=== PATIENT | female | born 1965 | race Caucasian/White ===

== ENCOUNTER 2020-06-25 08:57 | Outpatient (REF) | payer OTHER, SELFPAY ==
[2020-06-25 11:25] LABS: Hematocrit 41.6 % (37-47); Hemoglobin 13.2 g/dl (12.0-16.0); Mean Corpuscular HGB Conc 31.7 g/dl (31.0-35.0); Mean Corpuscular Hemoglobin 31.9 pg (27.0-33.0); Mean Corpuscular Volume 100.5 fL (80-98); Mean Platelet Volume 10.7 fL (9.4-12.3); Platelet Count 280 X10*3/uL (160-400); Red Blood Count 4.14 X10*6/uL (4.20-5.50); Red Cell Distribution Width 13.6 % (11.0-16.0); White Blood Count 5.6 X10*3/uL (4.8-10.8)
[2020-06-25 11:46] LABS: Alanine Aminotransferase 19 U/L (0-31); Albumin Level 4.6 g/dL (3.5-5.0); Alkaline Phosphatase 116 U/L (39-117); Anion Gap 16 (12-20); Aspartate Amino Transferase 19 U/L (5-31); Bilirubin Total 0.5 mg/dL (0.0-1.0); Blood Urea Nitrogen 18 mg/dL (9-16); Calcium 9.4 mg/dL (8.4-10.2); Carbon Dioxide 21 mmol/L (22-29); Chloride 107 mmol/L (96-108); Cholesterol 258 mg/dL; Estimated Glomerular Filt Rate > 60; Glucose Fasting 86 mg/dL (60-99); HDL Cholesterol 78 mg/dL; LDL Cholesterol Calculated 166 mg/dl; Potassium 4.4 mmol/l (3.3-5.1); Sodium 140 mmol/L (135-145); Total Protein 7.6 g/dL (6.5-8.0); Triglycerides 74 mg/dL
[2020-06-25 12:11] LABS: Thyroid Stimulating Hormone 1.32 mIU/mL (0.32-4.0); Vitamin D 25-OH Total 42.3 ng/mL (>30)
[2020-06-25 12:24] LABS: Glucose Urine UA NEG (NEG); Leukocyte Esterase Urine 1+ (NEG); Nitrite Urine NEG (NEG); Specific Gravity - Urine 1.025 (1.005-1.025); Urine Blood 1+ (NEG); Urine Ketones NEG (NEG); Urine Protein NEG (NEG-TRACE)
[2020-06-25 12:42] LABS: Appearance Urine CLEAR; Color Urine YELLOW
[2020-06-25 13:37] LABS: Bacteria Urine TRACE /LPF; RBC Urine 0 /HPF (0); Squamous Epithelial Cell Urine TRACE /LPF; WBC Urine 0-2 /HPF (0-4)
== END 2020-06-25 08:58 | disposition home or self-care (01) ==
LOC: HO.HMGCLDS 08:57
PROVIDERS: PCP Internal Medicine; Visit Provider Internal Medicine
DX: E78.2 Mixed hyperlipidemia (principal)
CPT/HCPCS: 36415; 80053; 80061; 81001; 81003; 82306; 84443; 85027

== ENCOUNTER 2020-12-29 09:53 | Outpatient (REF) | payer OTHER, SELFPAY ==
[2020-12-29 12:08] LABS: Cholesterol 251 mg/dL; HDL Cholesterol 80 mg/dL; LDL Cholesterol Calculated 159 mg/dl; Triglycerides 60 mg/dL
[2020-12-29 12:14] LABS: Vitamin D 25-OH Total 40.9 ng/mL (>30)
== END 2020-12-29 09:54 | disposition home or self-care (01) ==
LOC: HO.HMGCLDS 09:53
PROVIDERS: PCP Internal Medicine; Visit Provider Internal Medicine
DX: Z00.00 Encounter for general adult medical examination without abnormal findings (principal); E55.9 Vitamin D deficiency, unspecified; E78.00 Pure hypercholesterolemia, unspecified
CPT/HCPCS: 36415; 80061; 82306

== ENCOUNTER 2022-04-20 11:25 | Outpatient (REF) | payer OTHER, SELFPAY ==
[2022-04-20 12:36] LABS: Influenza A PCR NEGATIVE (Negative); Influenza B PCR NEGATIVE (Negative); Resp Syncy Virus RNA Qual PCR NEGATIVE (Negative); SARS COV2 PCR INHOUSE NEGATIVE (Negative)
== END 2022-04-20 11:26 | disposition home or self-care (01) ==
LOC: HO.LNP 11:25
PROVIDERS: Visit Provider Family Medicine
DX: Z20.822 Contact with and (suspected) exposure to COVID-19 (principal)
CPT/HCPCS: 0241U

== ENCOUNTER 2022-05-30 10:29 | Outpatient (REF) | payer OTHER, SELFPAY ==
[2022-05-30 11:40] LABS: Hematocrit 43.3 % (37.0-47.0); Hemoglobin 14.2 g/dl (12.0-16.0); Mean Corpuscular HGB Conc 32.8 g/dl (31.0-35.0); Mean Corpuscular Hemoglobin 31.9 pg (27.0-33.0); Mean Corpuscular Volume 97.3 fL (80.0-98.0); Mean Platelet Volume 10.6 fL (9.4-12.3); Platelet Count 249 X10*3/uL (160-400); Red Blood Count 4.45 X10*6/uL (4.20-5.50); White Blood Count 6.5 X10*3/uL (4.8-10.8)
[2022-05-30 11:46] LABS: Alanine Aminotransferase 29 U/L (0-31); Albumin Level 4.7 g/dL (3.5-5.0); Alkaline Phosphatase 103 U/L (39-117); Anion Gap 15 (12-20); Aspartate Amino Transferase 24 U/L (5-31); Bilirubin Total 0.5 mg/dL (0.0-1.0); Blood Urea Nitrogen 20 mg/dL (9-16); Calcium 9.8 mg/dL (8.4-10.2); Carbon Dioxide 25 mmol/L (22-29); Chloride 105 mmol/L (96-108); Cholesterol 260 mg/dL; Estimated Glomerular Filt Rate 51; Glucose Fasting 96 mg/dL (60-99); HDL Cholesterol 80 mg/dL; LDL Cholesterol Calculated 166 mg/dl; Potassium 4.3 mmol/L (3.3-5.1); Sodium 141 mmol/L (135-145); Total Protein 7.5 g/dL (6.5-8.0); Triglycerides 73 mg/dL
[2022-05-30 12:09] LABS: TSH reflex Free T4 1.08 uIU/mL (0.32-4.0); Vitamin D 25-OH Total 45.3 ng/mL (>30)
== END 2022-05-30 10:30 | disposition home or self-care (01) ==
LOC: HO.HMGCLDS 10:29
PROVIDERS: PCP Internal Medicine; Visit Provider Internal Medicine
DX: Z00.00 Encounter for general adult medical examination without abnormal findings (principal); E78.00 Pure hypercholesterolemia, unspecified
CPT/HCPCS: 36415; 80053; 80061; 82306; 84443; 85027

== ENCOUNTER 2022-07-14 10:20 | Outpatient (REF) | payer OTHER, SELFPAY ==
[2022-07-14 11:46] LABS: Cholesterol 234 mg/dL; HDL Cholesterol 82 mg/dL; LDL Cholesterol Calculated 140 mg/dl; Triglycerides 61 mg/dL
== END 2022-07-14 10:21 | disposition home or self-care (01) ==
LOC: HO.HMGCLDS 10:20
PROVIDERS: PCP Internal Medicine; Visit Provider Internal Medicine
DX: E78.00 Pure hypercholesterolemia, unspecified (principal)
CPT/HCPCS: 36415; 80061

== ENCOUNTER 2023-01-03 08:19 | Outpatient (REF) | payer OTHER, SELFPAY ==
[2023-01-03 11:16] LABS: MANUAL DIFF FLAG NO
[2023-01-03 11:39] LABS: Basophils Percent Auto 0.4 % (0-2); Eosinophils Absolute Auto 0.1 X10*3/uL (0.0-0.4); Eosinophils Percent Auto 1.4 % (0-4); Hematocrit 41.3 % (37.0-47.0); Hemoglobin 13.6 g/dl (12.0-16.0); Imm Gran Abs Auto 0.02 X10*3/uL (0.00-0.03); Imm Gran Pct Auto 0.4 % (0.0-0.4); Lymphocytes Absolute Auto 2.5 X10*3/uL (1.2-4.9); Lymphocytes Percent Auto 44.1 % (20-40); Mean Corpuscular HGB Conc 32.9 g/dl (31.0-35.0); Mean Corpuscular Hemoglobin 32.2 pg (27.0-33.0); Mean Corpuscular Volume 97.6 fL (80.0-98.0); Mean Platelet Volume 10.6 fL (9.4-12.3); Monocytes Absolute Auto 0.7 X10*3/uL (0.1-1.2); Monocytes Percent Auto 11.4 % (2-11); Neutrophils Absolute Auto 2.4 x10*3/uL (2.0-8.3); Neutrophils Percent Auto 42.3 % (45-73); Platelet Count 233 X10*3/uL (160-400); Red Blood Count 4.23 X10*6/uL (4.20-5.50); Red Cell Distribution Width 12.6 % (11.0-16.0); White Blood Count 5.7 X10*3/uL (4.8-10.8)
[2023-01-03 12:12] LABS: Alanine Aminotransferase 38 U/L (0-31); Albumin Level 4.2 g/dL (3.5-5.0); Alkaline Phosphatase 88 U/L (39-117); Anion Gap 12 (12-20); Aspartate Amino Transferase 34 U/L (5-31); Bilirubin Total 0.4 mg/dL (0.0-1.0); Blood Urea Nitrogen 12 mg/dL (9-16); Calcium 9.2 mg/dL (8.4-10.2); Carbon Dioxide 26 mmol/L (22-29); Chloride 108 mmol/L (96-108); Cholesterol 237 mg/dL; Estimated Glomerular Filt Rate > 60; Glucose Fasting 100 mg/dL (60-99); HDL Cholesterol 56 mg/dL; LDL Cholesterol Calculated 168 mg/dl; Potassium 4.6 mmol/L (3.3-5.1); Sodium 141 mmol/L (135-145); Total Protein 6.8 g/dL (6.5-8.0); Triglycerides 68 mg/dL
[2023-01-03 12:30] LABS: TSH reflex Free T4 1.32 uIU/mL (0.32-4.0); Vitamin D 25-OH Total 55.2 ng/mL (>30)
== END 2023-01-03 08:20 | disposition home or self-care (01) ==
LOC: HO.HMGCLDS 08:19
PROVIDERS: PCP Internal Medicine; Visit Provider Internal Medicine
DX: E66.9 Obesity, unspecified (principal); E78.00 Pure hypercholesterolemia, unspecified; E55.9 Vitamin D deficiency, unspecified
CPT/HCPCS: 36415; 80053; 80061; 82306; 84443; 85025

== ENCOUNTER 2023-04-21 12:19 | Outpatient (AMB) | payer OTHER, SELFPAY ==
[2023-04-21 12:51] VITALS: BP 118/70; PULSE 82; O2SAT 98; BMI 36.6
--- NOTE | 2023-04-21 12:51 | MHC.PC.OV ---
Vital Signs 04/21/23 12:51 Height 4 ft 10 in Weight 175 lb BMI 36.6 BP 118/70 Blood Pressure Location Lt brachial Position Sitting Pulse 82 Pulse Source Pulse Oximeter Pulse Oximetry (%) 98 Oxygen Delivery Method Room Air [facility] Int[facility] Note: Pt is here today for ER follow up visit Allergies No Known Allergies Allergy (Verified 04/21/23 12:54) Medication List - Last Reconciled 04/21/23 by Lisa Kumar MD cholecalciferol (vitamin D3) (Vitamin D3) 50 mcg PO DAILY magnesium citrate 100 mg PO DAILY metformin 500 mg PO DAILY omega 3-phn-qtx-fish oil 1,200 (144-216) mg (Fish Oil) caps PO Tobacco use date assessed: 04/21/23 Dental Screening Dental Screen Date: 04/21/23 Did you have a dental visit in the last 12 months?: Yes Did you have a dental problem in the last 6 months where you did not have access to dental care?: No Was dental information given to patient?: Patient has dentist [facility] HPI Details Pt presents for ER visit after a fall down the stairs and sustained laceration to the forehead 1 month ago. Patient denies loss of consciousness brain CT was negative. Patient started seeing Functional Medicine doctor and started taking metformin 1 week ago for borderline elevated glucose. Patient has not been taking Crestor for hyperlipidemia because she decided to try supplements first. [facility] Medical History (Updated 04/21/23 @ 13:25 by Lisa Kumar MD) Annual physical exam Carpal tunnel syndrome GERD (gastroesophageal reflux disease) History of mammogram Hypercholesterolemia Microhematuria Normal Pap smear Obesity Shoulder fracture, right Vitamin D deficiency Surgical History (Updated 01/06/23 @ 12:46 by Lisa Kumar MD) H/O colonoscopy History of ganglion cyst History of tubal ligation Family History Father HTN (hypertension) Mother Pulmonary fibrosis Cancer Son No problems noted. Son No problems noted. Sister No problems noted. Sister No problems noted. Sister No problems noted. Sister Colon polyps Brother No problems noted. Brother No problems noted. Social History Housing: House Patient Tobacco Use Status: Never used Tobacco e-Cigarette/Vaping Use: Never Used Current occupational status: retired Cognitive needs: No Hearing needs: No Vision needs: Yes Questionnaire Thrive Questionnaire Date Thrive assessed: 01/06/23 JAYLEN-7 AMB Questionnaire JAYLEN-7 Date JAYLEN - 7 assessed: 01/06/23 Source: Developed by Drs. Donnie aVrgas, Vero Hamilton, Ted Arce and colleagues, with an educational ewdin from [employer]. Review of Systems Const All systems reviewed & are unremarkable except as noted in HPI and below Reports no additional complaints Eyes Reports no additional complaints ENT Reports no additional complaints Card Reports no additional complaints Resp Reports no additional complaints GI Reports no additional complaints Physical exam (Primary Care) Vital Signs: Last Vital Signs Pulse 82 04/21/23 12:51 BP 118/70 04/21/23 12:51 Pulse Ox 98 04/21/23 12:51 Oxygen Delivery Method Room Air 04/21/23 12:51 BMI result Body Mass Index 36.6 Tobacco/Smoking Status: Tobacco use Status Tobacco use date assessed 04/21/23 04/21/23 12:56 Patient Tobacco Use Status Never used Tobacco 04/21/23 12:56 e-Cigarette/Vaping Use Never Used 04/21/23 12:51 Thrive Assessment: Date of Thrive Assessment Date Thrive assessed 01/06/23 04/21/23 12:51 Const General: no acute distress HENMT Head: Yes normal to inspection Mouth: Normal oral and palatal mucosa present Neck Neck: Yes no lymphadenopathy and Yes supple Resp Effort & Inspection: normal respiratory effort Auscultation: clear to auscultation bilaterally Cardio Rhythm: regular rhythm Heart sounds: S1 normal heart sound present and S2 normal heart sound present Assessment and Plan Assessment & Plan (1) Hypercholesterolemia: Comment: declined taking statin Code(s): E78.00 - Pure hypercholesterolemia, unspecified (2) Annual physical exam: Code(s): Z00.00 - Encounter for general adult medical examination without abnormal findings (3) Vitamin D deficiency: Code(s): E55.9 - Vitamin D deficiency, unspecified (4) Hyperglycemia: Comment: started Metformin 04/26 by Functional Medicine Code(s): R73.9 - Hyperglycemia, unspecified Plan: ADA diet increase exercise weight loss discussed with the patient. She will return for physical in June with fasting labs before Orders: Orders Comprehensive [place]. Panel Fast 2 Months E55.9 - Vitamin D deficiency, unspecified, E78.00 - Pure hypercholesterolemia, unspecified, R73.9 - Hyperglycemia, unspecified, Z00.00 - Encounter for general adult medical examination without abnormal findings Hemoglobin A1c 2 Months E55.9 - Vitamin D deficiency, unspecified, E78.00 - Pure hypercholesterolemia, unspecified, R73.9 - Hyperglycemia, unspecified, Z00.00 - Encounter for general adult medical examination without abnormal findings Lipid Panel 2 Months E55.9 - Vitamin D deficiency, unspecified, E78.00 - Pure hypercholesterolemia, unspecified, R73.9 - Hyperglycemia, unspecified, Z00.00 - Encounter for general adult medical examination without abnormal findings Vitamin D 25-OH Total 2 Months E55.9 - Vitamin D deficiency, unspecified, E78.00 - Pure hypercholesterolemia, unspecified, R73.9 - Hyperglycemia, unspecified, Z00.00 - Encounter for general adult medical examination without abnormal findings Complete Blood Count Auto Diff 2 Months E55.9 - Vitamin D deficiency, unspecified, E78.00 - Pure hypercholesterolemia, unspecified, R73.9 - Hyperglycemia, unspecified, Z00.00 - Encounter for general adult medical examination without abnormal findings Coding Level of Care Code Est Pt Level 4 (57905) Diagnoses Hypercholesterolemia E78.00 Annual physical exam Z00.00 Vitamin D deficiency E55.9 Hyperglycemia R73.9
== END 2023-04-21 13:19 | disposition home or self-care (01) ==
PROVIDERS: PCP Internal Medicine; Visit Provider Internal Medicine
DX: E78.00 Pure hypercholesterolemia, unspecified (principal); Z00.00 Encounter for general adult medical examination without abnormal findings; E55.9 Vitamin D deficiency, unspecified; R73.9 Hyperglycemia, unspecified
CPT/HCPCS: 99214

== ENCOUNTER 2023-06-10 09:25 | Outpatient (REF) | payer OTHER, SELFPAY | END 2023-06-10 09:26 | disposition home or self-care (01) | LOC: HO.HMGCLDS 09:25 | PROVIDERS: PCP Internal Medicine; Visit Provider Internal Medicine | DX: Z00.00 Encounter for general adult medical examination without abnormal findings (principal); E78.00 Pure hypercholesterolemia, unspecified; E55.9 Vitamin D deficiency, unspecified; R73.9 Hyperglycemia, unspecified | CPT/HCPCS: 36415; 80053; 80061; 82306; 83036; 85025 ==

== ENCOUNTER 2023-06-19 10:48 | Outpatient (AMB) | payer OTHER, SELFPAY ==
[2023-06-19 11:08] VITALS: BP 112/70; PULSE 90; O2SAT 97; BMI 35.9
--- NOTE | 2023-06-19 11:08 | MHC.PC.OV ---
Vital Signs 06/19/23 11:08 Height 4 ft 10 in Weight 172 lb BMI 35.9 BP 112/70 Blood Pressure Location Rt brachial Position Sitting Pulse 90 Pulse Source Pulse Oximeter Pulse Oximetry (%) 97 Oxygen Delivery Method Room Air Intake Visit Reasons: PE Allergies No Known Allergies Allergy (Verified 06/19/23 11:17) Medication List - Last Reconciled 06/19/23 by Lisa Kumar MD cholecalciferol (vitamin D3) (Vitamin D3) 50 mcg PO DAILY magnesium citrate 100 mg PO DAILY metformin 500 mg PO DAILY omega 9-ojz-mar-fish oil 1,200 (144-216) mg (Fish Oil) caps PO Tobacco use date assessed: 06/19/23 Dental Screening Dental Screen Date: 06/19/23 Did you have a dental visit in the last 12 months?: Yes Did you have a dental problem in the last 6 months where you did not have access to dental care?: No Was dental information given to patient?: Patient has dentist HPI PE HPI Details Patient presents for physical [facility] Medical History Annual physical exam Normal Pap smear Shoulder fracture, right Vitamin D deficiency Carpal tunnel syndrome Microhematuria History of mammogram Obesity Hypercholesterolemia GERD (gastroesophageal reflux disease) Surgical History H/O colonoscopy History of ganglion cyst History of tubal ligation Family History Father HTN (hypertension) Mother Pulmonary fibrosis Cancer Son No problems noted. Son No problems noted. Sister No problems noted. Sister No problems noted. Sister No problems noted. Sister Colon polyps Brother No problems noted. Brother No problems noted. Social History Housing: House Patient Tobacco Use Status: Never used Tobacco e-Cigarette/Vaping Use: Never Used Current occupational status: retired Cognitive needs: No Hearing needs: No Vision needs: Yes Questionnaire Thrive Questionnaire Date Thrive assessed: 01/06/23 AUDIT C Alcohol Use Questionnaire (AUDIT-C) 1. How often do you have a drink containing alcohol?: Monthly or less 2. How many drinks containing alcohol do you have on a typical day when you are drinking?: 1 or 2 3. How often do you have six or more drinks on one occasion?: Never Total Score: 1 JAYLEN-7 AMB Questionnaire JAYLEN-7 Date JAYLEN - 7 assessed: 01/06/23 Source: Developed by Drs. Donnie Vargas, Vero Hamilton, Ted Arce and colleagues, with an educational edwin from [employer]. Review of Systems Const All systems reviewed & are unremarkable except as noted in HPI and below Reports no additional complaints Eyes Reports no additional complaints ENT Reports no additional complaints Card Reports no additional complaints Resp Reports no additional complaints GI Reports no additional complaints Reports no additional complaints Physical exam (Primary Care) Vital Signs: Last Vital Signs Pulse 90 06/19/23 11:08 BP 112/70 06/19/23 11:08 Pulse Ox 97 06/19/23 11:08 Oxygen Delivery Method Room Air 06/19/23 11:08 BMI result Body Mass Index 35.9 Tobacco/Smoking Status: Tobacco use Status Tobacco use date assessed 06/19/23 06/19/23 11:17 Patient Tobacco Use Status Never used Tobacco 06/19/23 11:08 e-Cigarette/Vaping Use Never Used 06/19/23 11:08 Thrive Assessment: Date of Thrive Assessment Date Thrive assessed 01/06/23 06/19/23 11:08 Const General: no acute distress HENMT Head: Yes normal to inspection General nose exam: Normal nasal mucous membranes and turbinates present Mouth: oropharynx normal Eyes General: appearance normal, both eyes and all related structures Neck Neck: Yes no lymphadenopathy and Yes supple Resp Effort & Inspection: normal respiratory effort Auscultation: clear to auscultation bilaterally Cardio Rhythm: regular rhythm Heart sounds: S1 normal heart sound present and S2 normal heart sound present GI Inspection: Yes normal to inspection Palpation (GI): Soft to palpation Percussion: Yes normal to percussion Auscultation: normal bowel sounds Assessment and Plan Assessment & Plan (1) Annual physical exam: Code(s): Z00.00 - Encounter for general adult medical examination without abnormal findings Plan: Well-balanced diet, exercise weight loss discussed with the patient. She is up-to-date with the mammogram Pap smear and colonoscopy. DEXA will be scheduled (2) Postmenopausal: Code(s): Z78.0 - Asymptomatic menopausal state Plan: Check DEXA (3) Obesity: Code(s): E66.9 - Obesity, unspecified Plan: WEIGHT LOSS DISCUSSED WITH THE PATIENT (4) Hypercholesterolemia: Comment: declined taking statin Code(s): E78.00 - Pure hypercholesterolemia, unspecified Plan: Low-cholesterol diet increase physical activity weight lost at least 30 lb discussed with the patient. She is aware that not treating hyperlipidemia increasing her risk for CVA, [place], . Patient will follow-up in 7 months with a fasting labs before Orders: Orders XR DEXA axial skeleton Today E55.9 - Vitamin D deficiency, unspecified, E66.9 - Obesity, unspecified, E78.00 - Pure hypercholesterolemia, unspecified, R73.9 - Hyperglycemia, unspecified, Z00.00 - Encounter for general adult medical examination without abnormal findings, Z78.0 - Asymptomatic menopausal state Comprehensive [place]. Panel Fast 7 Months E55.9 - Vitamin D deficiency, unspecified, E66.9 - Obesity, unspecified, E78.00 - Pure hypercholesterolemia, unspecified, R73.9 - Hyperglycemia, unspecified, Z00.00 - Encounter for general adult medical examination without abnormal findings Hemoglobin A1c 7 Months E55.9 - Vitamin D deficiency, unspecified, E66.9 - Obesity, unspecified, E78.00 - Pure hypercholesterolemia, unspecified, R73.9 - Hyperglycemia, unspecified, Z00.00 - Encounter for general adult medical examination without abnormal findings Complete Blood Count Auto Diff 7 Months E55.9 - Vitamin D deficiency, unspecified, E66.9 - Obesity, unspecified, E78.00 - Pure hypercholesterolemia, unspecified, R73.9 - Hyperglycemia, unspecified, Z00.00 - Encounter for general adult medical examination without abnormal findings Lipid Panel 7 Months E55.9 - Vitamin D deficiency, unspecified, E66.9 - Obesity, unspecified, E78.00 - Pure hypercholesterolemia, unspecified, R73.9 - Hyperglycemia, unspecified, Z00.00 - Encounter for general adult medical examination without abnormal findings Coding Level of Care Code Est Pt Prev Care 40-64y(64632) Diagnoses Annual physical exam Z00.00 Postmenopausal Z78.0 Obesity E66.9 Hypercholesterolemia E78.00
== END 2023-06-19 12:06 | disposition home or self-care (01) ==
PROVIDERS: Visit Provider Internal Medicine
DX: Z00.00 Encounter for general adult medical examination without abnormal findings (principal); E66.9 Obesity, unspecified; Z78.0 Asymptomatic menopausal state; Z68.35 Body mass index [BMI] 35.0-35.9, adult; E78.00 Pure hypercholesterolemia, unspecified
CPT/HCPCS: 99396

== ENCOUNTER 2023-07-11 12:44 | Outpatient (REF) | payer OTHER, SELFPAY ==
--- NOTE | ~2023-07-11 | MM_ITS ---
EXAMINATION: BONE DENSITOMETRY CLINICAL INDICATION: Menopause. COMPARISON: Baseline BD dated 08/19/2016. TECHNIQUE: Using a [employer] DXA System (software version: 13.1) manufactured by [employer], dual-energy x-ray absorptiometry was performed of the lumbar spine and left hip. The images are of good technical quality. Summary results are attached. FINDINGS: LEFT FEMUR, NECK: Current: BMD 0.993 g/cm2, Z-score 0.6, T-score -0.3, normal. Baseline: BMD 0.983 g/cm2. LEFT FEMUR, TOTAL: Current: BMD 1.094 g/cm2, Z-score 1.3, T-score 0.7, normal, 3.1% increase from baseline (<5% change is not significant). Baseline: BMD 1.061 g/cm2. AP SPINE L1-L4: Current: BMD 1.141 g/cm2, Z-score 0.5, T-score -0.3, normal, 6.0% decrease from baseline (<5% change is not significant). Baseline: BMD 1.214 g/cm2. IDENTIFIED RISK FACTORS: Menopause, height loss, history of fracture (adult). HISTORY OF FRACTURE: Forearm, shoulder. MEDICATIONS: Vitamin D. MM/XR DEXA axial skeleton IMPRESSION: 1. DIAGNOSIS: Normal bone density based on the lowest T-score value of -0.3 in the femur neck and lumbar spine applying World Health Organization criteria. 2. 10-YEAR FRACTURE RISK PREDICTION, FRAX: According to the guidelines, FRAX calculation should only be performed on patients in the osteopenia bone density category. Therefore, FRAX was not performed on this patient. 3. Treatment Recommendations: NOF guidelines recommend consideration for treatment in postmenopausal women and men age 50 and older presenting with the following: -A hip or vertebral (clinical or morphometric) fracture. -T-score less than or equal to -2.5 at the femoral neck or spine after appropriate evaluation to exclude secondary causes. -Low bone mass at the hip or spine and a 10-year fracture probability by FRAX of greater than or equal to 3% for hip fracture or greater than or equal to 20% for major osteoporotic fracture based on the [place] adapted WHO algorithm. 4. Other Recommendations: All treatment decisions require clinical judgment and consideration of individual patient factors, including patient preferences, comorbidities, previous drug use, risk factors not captured in the FRAX model (e.g. frailty, falls, vitamin D deficiency, increased bone turnover, interval significant decline in bone density) and possible under or overestimation of fracture risk by FRAX. FUTURE SCAN RECOMMENDATION: People with diagnosed cases of osteoporosis or at high risk for fracture should have regular bone mineral density tests. For patients eligible for Medicare, routine testing is allowed once every 2 years. The testing frequency can be increased to one year for patients who have rapidly progressing disease, those who are receiving or discontinuing medical therapy to restore bone mass, or have additional risk factors.
== END 2023-07-11 12:45 | disposition home or self-care (01) ==
LOC: HO.MAMMO 12:44
PROVIDERS: PCP Internal Medicine; Visit Provider Internal Medicine
DX: Z13.820 Encounter for screening for osteoporosis (principal); Z78.0 Asymptomatic menopausal state
CPT/HCPCS: 77080

== ENCOUNTER 2024-01-03 08:52 | Outpatient (REF) | payer OTHER, SELFPAY ==
[2024-01-03 10:27] LABS: MANUAL DIFF FLAG NO
[2024-01-03 10:40] LABS: Hematocrit 42.9 % (37.0-47.0); Hemoglobin 14.3 g/dl (12.0-16.0); Mean Corpuscular HGB Conc 33.3 g/dl (31.0-35.0); Mean Corpuscular Hemoglobin 32.3 pg (27.0-33.0); Mean Corpuscular Volume 96.8 fL (80.0-98.0); Platelet Count 247 X10*3/uL (160-400); Red Blood Count 4.43 X10*6/uL (4.20-5.50); Red Cell Distribution Width 13.2 % (11.0-16.0); White Blood Count 6.1 X10*3/uL (4.8-10.8)
[2024-01-03 10:56] LABS: Estimated Average Glucose 100 mg/dL; Hemoglobin A1c % 5.1 % (<6.0)
[2024-01-03 11:38] LABS: Alkaline Phosphatase 84 U/L (39-117); Anion Gap 14 (12-20); Bilirubin Total 0.4 mg/dL (0.0-1.0); Blood Urea Nitrogen 15 mg/dL (9-16); Calcium 9.6 mg/dL (8.4-10.2); Carbon Dioxide 21 mmol/L (22-29); Chloride 108 mmol/L (96-108); Cholesterol 245 mg/dL (<200); Estimated Glomerular Filt Rate > 60; Glucose Fasting 103 mg/dL (60-99); HDL Cholesterol 80 mg/dL (>40); LDL Cholesterol Calculated 152 mg/dL (<100); Sodium 139 mmol/L (135-145); Triglycerides 68 mg/dL (<150)
== END 2024-01-03 08:53 | disposition home or self-care (01) ==
LOC: HO.HMGCLDS 08:52
PROVIDERS: PCP Internal Medicine; Visit Provider Internal Medicine
DX: Z00.00 Encounter for general adult medical examination without abnormal findings (principal); R73.9 Hyperglycemia, unspecified; E66.9 Obesity, unspecified; E55.9 Vitamin D deficiency, unspecified; E78.00 Pure hypercholesterolemia, unspecified
CPT/HCPCS: 36415; 80053; 80061; 83036; 85025

== ENCOUNTER 2024-01-03 09:27 | Outpatient (AMB) | payer OTHER, SELFPAY ==
[2024-01-03 09:30] VITALS: BP 114/68; PULSE 80; O2SAT 97; BMI 37.0
--- NOTE | 2024-01-03 09:30 | MHC.PC.OV ---
Vital Signs 01/03/24 09:30 Height 4 ft 10 in Weight 177 lb BMI 37.0 BP 114/68 Blood Pressure Location Rt brachial Position Sitting Pulse 80 Pulse Source Pulse Oximeter Pulse Oximetry (%) 97 Oxygen Delivery Method Room Air Intake Visit Reasons: cataract surgery 01/21 & February 05 Intake Note: Pt is here today for a pre op visit. Allergies No Known Allergies Allergy (Verified 01/03/24 09:31) Tobacco use date assessed: 01/03/24 Dental Screening Dental Screen Date: 01/03/24 Did you have a dental visit in the last 12 months?: Yes Did you have a dental problem in the last 6 months where you did not have access to dental care?: No Was dental information given to patient?: Patient has dentist HPI cataract surgery 01/21 & February 05 HPI Details Pt presrnts for preop for cataract surgery [facility] Medical History Annual physical exam Normal Pap smear Shoulder fracture, right Vitamin D deficiency Carpal tunnel syndrome Microhematuria History of mammogram Obesity Hypercholesterolemia GERD (gastroesophageal reflux disease) Surgical History H/O colonoscopy History of ganglion cyst History of tubal ligation Family History Father HTN (hypertension) Mother Pulmonary fibrosis Cancer Son No problems noted. Son No problems noted. Sister No problems noted. Sister No problems noted. Sister No problems noted. Sister Colon polyps Brother No problems noted. Brother No problems noted. Social History Housing: House Patient Tobacco Use Status: Never used Tobacco e-Cigarette/Vaping Use: Never Used service: No Current occupational status: retired Cognitive needs: No Hearing needs: No Vision needs: Yes Questionnaire PHQ-9 Over the last 2 weeks, how often have you been bothered by any of the following problems? 1. Little interest or pleasure in doing things: not at all 2. Feeling down, depressed, or hopeless: not at all 3. Trouble falling or staying asleep, or sleeping too much: not at all 4. Feeling tired or having little energy: not at all 5. Poor appetite or overeating: not at all 6. Feeling bad about yourself - or that you are a failure or have let yourself or your family down: not at all 7. Trouble concentrating on things, such as reading the newspaper or watching television: not at all 8. Moving or speaking so slowly that other people could have noticed. Or the opposite - being so fidgety or restless that you have been moving around a lot more than usual: not at all 9. Thoughts that you would be better off or of hurting yourself in some way: not at all Total score: 0 Depression Screening Interpretation: Negative Depression Screening Done: Yes Source: Developed by Drs. Donnie Vargas, Vero Hamilton, Ted Arce and colleagues, with an educational edwin from [employer]. Thrive Questionnaire Date Thrive assessed: 01/03/24 I am a: Patient What is your living situation today?: I have a steady place to live Within the past 12 months, did the food you bought not last and you didn't have the money to get more?: Never true Within the past 12 months, did you worry whether your food would run out before you got money to buy more?: Never true Do you have trouble paying for medicines?: No Do you have trouble getting transportation to medical appointments?: No Do you have trouble paying your heating and electricity bill?: No Do you have trouble taking care of your child, family member or friend?: No Do you have trouble with day-to-day activities such as bathing, preparing meals, shopping, managing finances, etc.?: No Are you currently unemployed and looking for a job?: No Are you interested in more education?: No Please select the resources that you would like help with: None THRIVE Score: 0 AUDIT C Alcohol Use Questionnaire (AUDIT-C) 1. How often do you have a drink containing alcohol?: Monthly or less 2. How many drinks containing alcohol do you have on a typical day when you are drinking?: 1 or 2 3. How often do you have six or more drinks on one occasion?: Never Total Score: 1 JAYLEN-7 AMB Questionnaire JAYLEN-7 Date JAYLEN - 7 assessed: 01/03/24 Feeling nervous, anxious, or on edge: 0 = Not at all Not being able to stop or control worryin = Not at all Worrying too much about different things: 0 = Not at all Trouble relaxin = Not at all Being so restless that it is hard to sit still: 0 = Not at all Becoming easily annoyed or irritable: 0 = Not at all Feeling afraid as if something awful might happen: 0 = Not at all Total JAYLEN-7 score (0-4 normal; 5-9 mild; 10-14 moderate; 15-21 severe): 0 Source: Developed by Drs. Donnie Vargas, Vero Hamilton, Ted Arce and colleagues, with an educational edwin from [employer]. Review of Systems Const All systems reviewed & are unremarkable except as noted in HPI and below Reports no additional complaints Eyes Reports no additional complaints ENT Reports no additional complaints Card Reports no additional complaints Resp Reports no additional complaints GI Reports no additional complaints Reports no additional complaints Musc Reports no additional complaints Physical exam (Primary Care) Vital Signs: Last Vital Signs Pulse 80 01/03/24 09:30 BP 114/68 01/03/24 09:30 Pulse Ox 97 01/03/24 09:30 Oxygen Delivery Method Room Air 01/03/24 09:30 BMI result Body Mass Index 37.0 Tobacco/Smoking Status: Tobacco use Status Tobacco use date assessed 01/03/24 01/03/24 09:36 Patient Tobacco Use Status Never used Tobacco 01/03/24 09:36 e-Cigarette/Vaping Use Never Used 01/03/24 09:36 Depression Screening Interpretation: Negative Thrive Assessment: Date of Thrive Assessment Date Thrive assessed 01/06/23 01/03/24 09:36 Const General: no acute distress HENMT Head: Yes normal to inspection Ears: hearing grossly normal bilaterally Face and sinus: Yes normal facial exam Eyes General: appearance normal, both eyes and all related structures Neck Neck: Yes supple Resp Effort & Inspection: normal respiratory effort Auscultation: clear to auscultation bilaterally Cardio Rhythm: regular rhythm Heart sounds: S1 normal heart sound present and S2 normal heart sound present GI Inspection: Yes normal to inspection Palpation (GI): Soft to palpation Assessment and Plan Assessment & Plan (1) Cataract: Code(s): H26.9 - Unspecified cataract Plan: Patient is medically cleared for cataract surgery (2) Hypercholesterolemia: Comment: declined taking statin Code(s): E78.00 - Pure hypercholesterolemia, unspecified Plan: Continue low-cholesterol diet Coding Level of Care Code Est Pt Level 3 (28107) Diagnoses Cataract H26.9 Hypercholesterolemia E78.00
== END 2024-01-03 10:14 | disposition home or self-care (01) ==
PROVIDERS: PCP Internal Medicine; Visit Provider Internal Medicine
DX: H26.9 Unspecified cataract (principal); E78.00 Pure hypercholesterolemia, unspecified
CPT/HCPCS: 99213

== ENCOUNTER 2024-07-02 11:24 | Outpatient (AMB) | payer OTHER, SELFPAY ==
[2024-07-02 11:35] VITALS: BP 122/74; PULSE 93; O2SAT 98; BMI 37.0
--- NOTE | 2024-07-02 11:35 | MHC.PC.OV ---
Vital Signs 07/02/24 11:35 Height 4 ft 10 in Weight 177 lb BMI 37.0 BP 122/74 Blood Pressure Location Rt brachial Position Sitting Pulse 93 Pulse Source Pulse Oximeter Pulse Oximetry (%) 98 Oxygen Delivery Method Room Air Intake Visit Reasons: Annual PE Intake Note: Pt is here today for PE. Allergies No Known Allergies Allergy (Verified 07/02/24 11:42) Medication List - Last Reconciled 07/02/24 by Lisa Kumar MD cholecalciferol (vitamin D3) (Vitamin D3) 50 mcg PO DAILY magnesium citrate 100 mg PO DAILY omega 3-kvc-ano-fish oil 1,200 (144-216) mg (Fish Oil) caps PO Tobacco use date assessed: 07/02/24 Dental Screening Dental Screen Date: 01/03/24 HPI Annual PE HPI Details Pt presents for PE. [facility] Medical History (Updated 07/02/24 @ 12:14 by Lisa Kumar MD) Annual physical exam Normal Pap smear Shoulder fracture, right Vitamin D deficiency Carpal tunnel syndrome Microhematuria History of mammogram Obesity Hypercholesterolemia GERD (gastroesophageal reflux disease) Surgical History (Updated 07/02/24 @ 12:16 by Lisa Kumar MD) H/O colonoscopy History of ganglion cyst History of tubal ligation Family History Father HTN (hypertension) Mother Pulmonary fibrosis Cancer Son No problems noted. Son No problems noted. Sister No problems noted. Sister No problems noted. Sister No problems noted. Sister Colon polyps Brother No problems noted. Brother No problems noted. Social History Housing: House Patient Tobacco Use Status: Never used Tobacco e-Cigarette/Vaping Use: Never Used service: No Current occupational status: retired Cognitive needs: No Hearing needs: No Vision needs: Yes Questionnaire PHQ-9 Over the last 2 weeks, how often have you been bothered by any of the following problems? 1. Little interest or pleasure in doing things: not at all 2. Feeling down, depressed, or hopeless: not at all 3. Trouble falling or staying asleep, or sleeping too much: not at all 4. Feeling tired or having little energy: not at all 5. Poor appetite or overeating: not at all 6. Feeling bad about yourself - or that you are a failure or have let yourself or your family down: not at all 7. Trouble concentrating on things, such as reading the newspaper or watching television: not at all 8. Moving or speaking so slowly that other people could have noticed. Or the opposite - being so fidgety or restless that you have been moving around a lot more than usual: not at all 9. Thoughts that you would be better off or of hurting yourself in some way: not at all Total score: 0 Depression Screening Interpretation: Negative Depression Screening Done: Yes 93953 - PHQ-9 Billing: Yes Source: Developed by Drs. Donnie Vargas, Vero Hamilton, Ted Arce and colleagues, with an educational edwin from [employer]. Thrive Questionnaire Date Thrive assessed: 07/02/24 I am a: Patient What is your living situation today?: I have a steady place to live Within the past 12 months, did the food you bought not last and you didn't have the money to get more?: Never true Within the past 12 months, did you worry whether your food would run out before you got money to buy more?: Never true Do you have trouble paying for medicines?: No Do you have trouble getting transportation to medical appointments?: No Do you have trouble paying your heating and electricity bill?: No Do you have trouble taking care of your child, family member or friend?: No Do you have trouble with day-to-day activities such as bathing, preparing meals, shopping, managing finances, etc.?: No Are you currently unemployed and looking for a job?: No Are you interested in more education?: No Please select the resources that you would like help with: None Currently or been in a relationship where the following occur: No concerns reported THRIVE Score: 0 AUDIT C Alcohol Use Questionnaire (AUDIT-C) 1. How often do you have a drink containing alcohol?: Monthly or less 2. How many drinks containing alcohol do you have on a typical day when you are drinking?: 1 or 2 3. How often do you have six or more drinks on one occasion?: Never Total Score: 1 JAYLEN-7 AMB Questionnaire JAYLEN-7 Date JAYLEN - 7 assessed: 10/29/24 Feeling nervous, anxious, or on edge: 0 = Not at all Not being able to stop or control worryin = Not at all Worrying too much about different things: 0 = Not at all Trouble relaxin = Not at all Being so restless that it is hard to sit still: 0 = Not at all Becoming easily annoyed or irritable: 0 = Not at all Feeling afraid as if something awful might happen: 0 = Not at all Total JAYLEN-7 score (0-4 normal; 5-9 mild; 10-14 moderate; 15-21 severe): 0 Source: Developed by Drs. Donnie Vargas, Vero Hamilton, Ted Arce and colleagues, with an educational edwin from [employer]. JAYLEN-7 Assessment Billing JAYLEN-7 Assessment Tool: JAYLEN-7 Assessment 32623 Review of Systems Const All systems reviewed & are unremarkable except as noted in HPI and below Eyes Reports no additional complaints ENT Reports no additional complaints Card Reports no additional complaints Resp Reports no additional complaints GI Reports no additional complaints Reports no additional complaints Physical exam (Primary Care) Vital Signs: Last Vital Signs Pulse 93 07/02/24 11:35 BP 122/74 07/02/24 11:35 Pulse Ox 98 07/02/24 11:35 Oxygen Delivery Method Room Air 07/02/24 11:35 BMI result Body Mass Index 37.0 Tobacco/Smoking Status: Tobacco use Status Tobacco use date assessed 07/02/24 07/02/24 11:42 Patient Tobacco Use Status Never used Tobacco 07/02/24 11:35 e-Cigarette/Vaping Use Never Used 07/02/24 11:35 PHQ-9: PHQ-9 Score PHQ-9: Total score 0 07/02/24 11:45 Depression Screening Interpretation: Negative Thrive Assessment: Date of Thrive Assessment Date Thrive assessed 07/02/24 07/02/24 11:44 Currently or been in a relationship where the following occur: No concerns reported Const General: no acute distress HENMT Head: Yes normal to inspection General nose exam: Normal external nose present Mouth: Normal oral and palatal mucosa present Eyes General: appearance normal, both eyes and all related structures Neck Neck: Yes no lymphadenopathy and Yes supple Resp Effort & Inspection: normal respiratory effort Auscultation: clear to auscultation bilaterally Cardio Rhythm: regular rhythm Heart sounds: S1 normal heart sound present and S2 normal heart sound present GI Inspection: Yes normal to inspection Palpation (GI): Soft to palpation Percussion: Yes normal to percussion Auscultation: normal bowel sounds Coding Level of Care Code Est Pt Prev Care 40-64y(37750) Diagnoses Hyperglycemia R73.9 Hypercholesterolemia E78.00 Vitamin D deficiency E55.9 H/O colonoscopy Z98.890 Additional Codes JAYLEN-7 Assessment Billing - JAYLEN-7 Assessment Tool: JAYLEN-7 Assessment 63504 ([id number]) Assessment & Plan Assessment & Plan (1) Hyperglycemia: Code(s): R73.9 - Hyperglycemia, unspecified Category: Medical Plan: cont ADA diet, check A1C (2) Hypercholesterolemia: Comment: declined taking statin Code(s): E78.00 - Pure hypercholesterolemia, unspecified Category: Medical Plan: cont low cholesterol diet, exercise, weight loss (3) Vitamin D deficiency: Code(s): E55.9 - Vitamin D deficiency, unspecified Category: Medical Plan: cont vit D (4) H/O colonoscopy: Comment: 2010 - normal, repeat 02/2023 normal Code(s): Z98.890 - Other specified postprocedural states Category: Surgical Plan: f/u with GI Orders: Orders Comprehensive [place]. Panel Fast 6 Weeks E55.9 - Vitamin D deficiency, unspecified, E78.00 - Pure hypercholesterolemia, unspecified, R73.9 - Hyperglycemia, unspecified Vitamin D 25-OH Total 6 Weeks E55.9 - Vitamin D deficiency, unspecified, E78.00 - Pure hypercholesterolemia, unspecified, R73.9 - Hyperglycemia, unspecified Lipid Panel 1 Year E78.00 - Pure hypercholesterolemia, unspecified, R73.9 - Hyperglycemia, unspecified, Z00.00 - Encounter for general adult medical examination without abnormal findings TSH reflex Free T4 1 Year E78.00 - Pure hypercholesterolemia, unspecified, R73.9 - Hyperglycemia, unspecified, Z00.00 - Encounter for general adult medical examination without abnormal findings Lipid Panel 6 Weeks E55.9 - Vitamin D deficiency, unspecified, E78.00 - Pure hypercholesterolemia, unspecified, R73.9 - Hyperglycemia, unspecified Hemoglobin A1c Today R73.9 - Hyperglycemia, unspecified Comprehensive [place]. Panel Fast 1 Year E78.00 - Pure hypercholesterolemia, unspecified, R73.9 - Hyperglycemia, unspecified, Z00.00 - Encounter for general adult medical examination without abnormal findings Complete Blood Count Auto Diff 1 Year E78.00 - Pure hypercholesterolemia, unspecified, R73.9 - Hyperglycemia, unspecified, Z00.00 - Encounter for general adult medical examination without abnormal findings
== END 2024-07-02 12:22 | disposition home or self-care (01) ==
LOC: HO.HMCC 11:25
PROVIDERS: PCP Internal Medicine; Visit Provider Internal Medicine
DX: Z00.00 Encounter for general adult medical examination without abnormal findings (principal); R73.9 Hyperglycemia, unspecified; E78.00 Pure hypercholesterolemia, unspecified; E55.9 Vitamin D deficiency, unspecified; Z98.890 Other specified postprocedural states

== ENCOUNTER → 2024-07-02 11:24 | Outpatient (BNVA) | payer OTHER, SELFPAY | PROVIDERS: PCP Internal Medicine; Visit Provider Internal Medicine | DX: R73.9 Hyperglycemia, unspecified (principal); E78.00 Pure hypercholesterolemia, unspecified; E55.9 Vitamin D deficiency, unspecified; Z98.890 Other specified postprocedural states | CPT/HCPCS: 96127 ==

== ENCOUNTER 2024-08-02 09:38 | Outpatient (REF) | payer OTHER, SELFPAY ==
[2024-08-02 11:25] LABS: Alanine Aminotransferase 30 U/L (0-31); Albumin Level 4.2 g/dL (3.5-5.0); Alkaline Phosphatase 93 U/L (39-117); Anion Gap 11 (12-20); Aspartate Amino Transferase 30 U/L (5-31); Bilirubin Total 0.5 mg/dL (0.0-1.0); Blood Urea Nitrogen 13 mg/dL (9-16); Calcium 8.5 mg/dL (8.4-10.2); Carbon Dioxide 24 mmol/L (22-29); Chloride 109 mmol/L (96-108); Cholesterol 236 mg/dL (<200); Estimated Glomerular Filt Rate 60; Glucose Fasting 93 mg/dL (60-99); HDL Cholesterol 70 mg/dL (>40); LDL Cholesterol Calculated 150 mg/dL (<100); Potassium 4.2 mmol/L (3.3-5.1); Sodium 140 mmol/L (135-145); Total Protein 7.3 g/dL (6.5-8.0); Triglycerides 84 mg/dL (<150)
[2024-08-02 11:43] LABS: Vitamin D 25-OH Total 44.9 ng/mL (>30)
== END 2024-08-02 09:39 | disposition home or self-care (01) ==
LOC: HO.HMGCLDS 09:38
PROVIDERS: PCP Internal Medicine; Visit Provider Internal Medicine
DX: E78.00 Pure hypercholesterolemia, unspecified (principal); E55.9 Vitamin D deficiency, unspecified; R73.9 Hyperglycemia, unspecified
CPT/HCPCS: 36415; 80053; 80061; 82306

== ENCOUNTER 2024-10-24 12:28 | Outpatient (REF) | payer OTHER, SELFPAY ==
[2024-10-24 17:38] LABS: Influenza A PCR NEGATIVE (Negative); Influenza B PCR NEGATIVE (Negative); Resp Syncy Virus RNA Qual PCR NEGATIVE (Negative); SARS COV2 PCR INHOUSE NEGATIVE (Negative)
== END 2024-10-24 12:29 | disposition home or self-care (01) ==
LOC: HO.LAB 12:28
PROVIDERS: PCP Internal Medicine; Visit Provider Nurse Practitioner Family
DX: J06.9 Acute upper respiratory infection, unspecified (principal); R05.1 Acute cough
CPT/HCPCS: 0241U

== ENCOUNTER 2024-10-24 12:28 | Outpatient (AMB) | payer OTHER, SELFPAY ==
--- NOTE | 2024-10-24 13:01 | AM.OFFWIN_ITS ---
Intake Vital Signs 10/24/24 13:03 Weight 178 lb 8 oz BP 130/82 Blood Pressure Location Lt brachial Position Sitting Pulse 95 Pulse Source Pulse Oximeter Temp 98.1 F Temp Source Oral Pulse Oximetry (%) 97 Oxygen Delivery Method Room Air Intake Visit Reasons: EP head cold, headache, cough Intake Note: Patient here for bilat ear pain, cough, congestion, headache that has been present since Monday. Patient Tobacco Use Status: Never used Tobacco Allergies No Known Allergies Allergy (Verified 10/24/24 13:06) Do you need a note to return to daycare/school/sports/work: No HPI HPI Comments History of Present Illness Details 59 y/o female patient who presents to [facility] walk in clinic with c/o URI symptoms since Monday. Reports cough, body aches and chills. [facility] Medical History (Updated 10/24/24 @ 13:27 by Grazyna Cerda NP) Cough Acute respiratory disease Annual physical exam Normal Pap smear Shoulder fracture, right Vitamin D deficiency Carpal tunnel syndrome Microhematuria History of mammogram Obesity Hypercholesterolemia GERD (gastroesophageal reflux disease) Surgical History (Updated 07/02/24 @ 12:16 by Lisa Kumar MD) H/O colonoscopy History of ganglion cyst History of tubal ligation Family History Father HTN (hypertension) Mother Pulmonary fibrosis Cancer Son No problems noted. Son No problems noted. Sister No problems noted. Sister No problems noted. Sister No problems noted. Sister Colon polyps Brother No problems noted. Brother No problems noted. Social History Housing: House Patient Tobacco Use Status: Never used Tobacco e-Cigarette/Vaping Use: Never Used service: No Current occupational status: retired Cognitive needs: No Hearing needs: No Vision needs: Yes Review of Systems Const All systems reviewed & are unremarkable except as noted in HPI and below Physical Exam Vital Signs: Last Vital Signs Temp 98.1 F 10/24/24 13:03 Pulse 95 10/24/24 13:03 BP 130/82 10/24/24 13:03 Pulse Ox 97 10/24/24 13:03 Oxygen Delivery Method Room Air 10/24/24 13:03 Const General: cooperative and no acute distress Nutritional Appearance: obese Orientation/consciousness: patient oriented x3 HEENT Head: Yes normocephalic Ears: external ears normal and TM abnormal bulging bilateral and with fluid behind the TM bilateral General nose exam: Nasal discharge present Face and sinus: Yes sinuses nontender Mouth: moist mucous membranes Throat: Yes uvula midline Resp Effort & Inspection: normal respiratory effort, able to speak in complete sentences, no audible wheezes and no cough Auscultation: clear to auscultation bilaterally, no crackles, no rales, no rhonchi and no wheezes Cardio Heart sounds: S1 normal heart sound present and S2 normal heart sound present Neuro General: patient oriented x3 Assessment & Plan Assessment & Plan (1) Acute respiratory disease: Code(s): J06.9 - Acute upper respiratory infection, unspecified Plan: Ordered SARs. Ordered cough medicine. Rest and hydrate well with warm fluids. (2) Cough: Code(s): R05.9 - Cough, unspecified Qualifiers: Cough type: acute Qualified Code(s): R05.1 - Acute cough Plan: Ordered SARs. Ordered cough medicine. Rest and hydrate well with warm fluids. Orders: Orders SARS-CoV2/FLU/RSV Today J06.9 - Acute upper respiratory infection, unspecified Medications: New benzonatate 100 mg PO TID 90 caps 0RF cough J06.9 - Acute upper respiratory infection, unspecified, R05.9 - Cough, unspecified dextromethorphan-guaifenesin 5-100 mg/5 mL (Robitussin Cough-Chest Congestion DM) 10 mL PO Q4-8H PRN 1,000 mL 0RF cough J06.9 - Acute upper respiratory infection, unspecified, R05.9 - Cough, unspecified Coding Level of Care Code Est Pt Level 4 (15782) Diagnoses Acute respiratory disease J06.9 Acute cough R05.1 Cough type: acute Time Spent (min) 20
[2024-10-24 13:03] VITALS: BP 130/82; PULSE 95; TEMP 36.7; O2SAT 97
--- OUTSIDE RECORDS SUMMARY | 2024-10-24 13:26 | XMS_ITS | Patient Health Record ---
Author Organization [facility] Address [address] [place] [address] Care Team Providers Care Rechecker Name Role Phone Lisa Kumar MD Primary Care Provider Genea Laura Kaye Unavailable [phone] ANDREI RIVERAA Unavailable [phone] Allergies No Known Allergies Results Component Value Reference Range Notes PDF Report Reviewed date:04/26/2024 01:18:43 PM Interpretation: Performing Lab:[facility], [address] [place] [address], Phone - [phone], Director - [facility] Notes/Report: Clinical Information:[id number] Dates / Results....04/12/21 ASCUS, HR HPV NEG Other..............Post Menopausal No. of containers..01 ThinPrep Vial [id number] [id number] No Culture 30 Plus Reviewed date:04/26/2024 01:15:15 PM Interpretation: Performing Lab:[facility], [address] [place] [address], Phone - [phone], Director - [facility] Notes/Report: Clinical Information:[id number] Dates / Results....04/12/21 ASCUS, HR HPV NEG Other..............Post Menopausal No. of containers..01 ThinPrep Vial DIAGNOSIS: EPITHELIAL CELL ABNORMALITY. ATYPICAL SQUAMOUS CELLS OF UNDETERMINED SIGNIFICANCE (ASC-US). Specimen adequacy: Satisfactory for evaluation. Endocervical and/or squamous metaplastic cells (endocervical component) are present. Clinician provided ICD10: Z0 1.419 Performed by: Lauren arauz, School Bus Dispatcher (ASCP) Electronically signed by: Hector Anne MD, Pathologist . . Pathologist provided ICD10: R87.610 Note: The Pap smear is a screening test designed to aid in the detection of premalignant and malignant conditions of the uterine cervix. It is not a diagnostic procedure and should not be used as the sole means of detecting cervical cancer. Both false-positive and false-negative reports do occur. . Test Methodology: This liquid based ThinPrep(R) pap test was screened with the use of an image guided system. HPV Aptima Negative Negative This nucleic acid amplification test detects fourteen high-risk HPV types (16,18,31,33,35,39,45,51,52,56, 58,59,66,68) without differentiation. HPV Genotype Reflex Criteria not met, HPV Genotype not performed. Reason For Referral No Information Medications Medication SIG (Take, Route, Frequency, Duration) Notes Start Date End Date Status Vitamin D 2000 UNIT 1 tablet Orally Once a day Active Magnesium Citrate 200 MG as directed Orally Active Fish Oil 500 MG 1 capsule Orally Twi ce a day for 30 day(s) Active CoQ-10 Active Social History Tobacco Use: Social History Observation Description Date Details (start date - stop date) Never Smoker NA - NA Tobacco Use/Smoking Question Answer Notes Are you a nonsmoker Alcohol Screen (Audit-C) Question Answer Notes Did you have a drink contain ing alcohol in the past year? Yes How often did you have a dri nk containing alcohol in the past year? 2 to 3 times a week (3 points) How many drinks did you have on a typical day when you were drinking in the past year? 1 or 2 drinks (0 point) How often did you have 6 or more drinks on one occasion in the past year? Less than monthly (1 point) Points 4 Interpretation Positive Problems Problem Type SNOMED Code ICD Code Onset Dates Problem Status W/U Status Risk Notes Problem Hyperlipidemia (16328832) Hyperlipidemia, unspecified (E78.5) Active confirmed Problem Prediabetes (478979657) Prediabetes (R73.03) Active confirmed Problem COVID-19 (985793250) COVID-19 (U07.1) Active confirmed Problem Gynecological examination normal (697464557899444) Routine gynecological examination (V72.31) Active confirmed Major Problem Screening for malignant neoplasm of colon (202468346) Special screening for malignant neoplasms, colon (V76.51) Active confirmed Major Vital Signs Temperature 97.5 degrees Fahrenheit 04/19/2024 Blood pressure diastolic 84 mm Hg 04/19/2024 Height 58 in 04/19/2024 Blood pressure systolic 120 mm Hg 04/19/2024 Weight 173 lbs 04/19/2024 BMI 36.15 kg/m2 04/19/2024 Encounters Encounter Location Date Provider Diagnosis [facility] [address] [place] [address] 04/19/2024 DONALD RIVERA Encounter for gynecological examination (general) (routine) without abnormal findings Z01.419 and Encounter for screening mammogram for malignant neoplasm of breast Z12.31 Assessments Encounter Date Diagnosis (ICD Code) Assessment Notes Treatment Notes Treatment Clinical Notes Section Notes 04/19/2024 Encounter for gynecological examination (general) (routine) without abnormal findings (ICD-10 - Z01.419) During the visit, the following areas of concern were addressed: Discussed cervical cancer screening with either cytology alone every 3 years or high risk HPV co-testing every 5 years as per ASCCP guidelines. Advised continued annual pelvic exams. Patient encouraged to increase her level of exercise. SBE technique encouraged/tau ght. Patient reminded when annual mammogram is due. Patient encouraged to keep colon screening up to date. 04/19/2024 Encounter for screening mammogram for malignant neoplasm of breast (ICD-10 - Z12.31) Plan Of Treatment Pending Test Test Name Order Date MAMMOGRAM, SCREENING 10/10/2014 Urinalysis 01/12/2018 MM Digital Screening Mammogram 3D 2020 MM Digital Screening Mammogram 3D 2021 MM Digital Screening Mammogram 3D 2022 MM Digital Screening Mammogram 3D 2023 Next Appt Details Provider Name:Laura du, 04/24/2025 10:00:00 AM, [address], [place], [address], Insurance Providers Payer Name Payer Address Payer Phone Subscriber Number Group Number Insured Name Patient Relationship to Insured Coverage Start Date Coverage End Date [facility] [address] [place] [address] [id number] [phone] [id number] [address] [place], [place] Self - patient is the insured Medical (General) History Medical History History ICD Code Atypical squamous cells of u ndetermined significance on cytologic smear of cervix (ASC-US) R87.610 Prediabetes R73.03 Hyperlipidemia, unspecified E78.5 COVID-19 U07.1 Surgical History Surgery Date(Month/Year) Bilateral Tubal Ligation Colonoscopy Left Hand Surgery [place] Teeth R shoulder surgery 05/2020 Right Cataract 01/2024 Left Cataract 03/2024 Hospitalization History Reason Date(Month/Year) See Surgical Hx 2 Vaginal Deliveries
--- OUTSIDE RECORDS SUMMARY | 2024-10-24 13:26 | XMS_ITS ---
Author Organization [employer] [facility] Address [address] [place] [address] Care Team Providers Care Veneer Grader Name Role Phone Lisa Kumar MD Primary Care Provider Brandi Galeas Laura Unavailable [phone] DONALD RIVERA Unavailable [phone] Allergies No Known Allergies Results Component Value Reference Range Notes [id number] IGP No Culture 30 Plus Reviewed date:04/26/2024 01:15:15 PM Interpretation: Performing Lab:[facility], [address] [place] [address], Phone - [phone], Director - [facility] Notes/Report: Clinical Information:[id number] Dates / Results....04/12/21 ASCUS, HR HPV NEG Other..............Post Menopausal No. of containers..01 ThinPrep Vial DIAGNOSIS: EPITHELIAL CELL ABNORMALITY. ATYPICAL SQUAMOUS CELLS OF UNDETERMINED SIGNIFICANCE (ASC-US). Specimen adequacy: Satisfactory for evaluation. Endocervical and/or squamous metaplastic cells (endocervical component) are present. Clinician provided ICD10: Z0 1.419 Performed by: Lauren arauz, Director News (ASCP) Electronically signed by: Hector Anne MD, [...] Criteria not met, HPV Genotype not performed. PDF Report Reviewed date:04/26/2024 01:18:43 PM Interpretation: Performing Lab:[facility], [address] [place] [address], Phone - [phone], Director - [facility] Notes/Report: Clinical Information:[id number] Dates / Results....04/12/21 ASCUS, HR HPV NEG Other..............Post Menopausal No. 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 Medications Medication SIG (Take, Route, Frequency, Duration) [...] Problem Status W/U Status Risk Notes Problem COVID-19 (973491569) COVID-19 (U07.1) Active confirmed Vital Signs Temperature 97.5 degrees Fahrenheit 04/19/20 24 Blood pressure systolic 120 mm Hg 04/19/20 24 Blood pressure diastolic 84 mm Hg 024 Height 58 in 04/19/2024 Weight 173 lbs 04/19/2024 BMI 36.15 kg/m2 04/19/2024 Encounters Encounter Location Date Provider Diagnosis [facility] [address] [place] [address] 04/19/2024 DONALD NICOLE Encounter for gynecological examination (general) (routine) without [...] breast (ICD-10 - Z12.31) Plan Of Treatment Treatment Notes Assessment Notes Encounter for gynecological examination (general) (routine) without abnormal findings During the visit, the following areas of concern were addressed: Discussed cervical cancer screening with either cytology alone every 3 years or high risk HPV co-testing every 5 years as per ASCCP guidelines. Advised continued annual pelvic exams. Patient encouraged to increase her level of exercise. SBE technique encouraged/taught. Patient reminded when annual mammogram is due. Patient encouraged to keep colon screening up to date. 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 She has the following concerns: none ?She has received the [employer] Covid-19 vaccine and 2 boosters. ?Relationship status: for nearly 42 years. She is sexually active. Sexual partner(s): male. She does not wish to have STI testing. ?She does not report vaginal dryness. She does not have hot flashes/night sweats. ?The patient has never had an abnormal pap smear. Her most recent pap smear was 04/12/21 - ASCUS, Neg HR HPV. Next due for pap in 2023. ?She has not been diagnosed with breast cancer. She does not have a family history of breast cancer. Her last mammogram was 04/19/24. ?She does not have a family history of colon cancer. Her sister had colon polyps. She a has had a colonoscopy. The last colonoscopy was 01/2023 - ok. Next one in 10 yrs. ?The patient does exercise. She exercises x 2-3 days/week by walking. * ROS:?Annual Audio Visual Tech Exam ROS:?Bowel habit changes?denies.?Bladder symptoms?denies.?Vaginal discharge, unusual?denies.?Vaginal itch or odor?denies.?weight or appetite changes?denies.?Chest pains, SOB?denies.?depression?denies.?Breast:?Denies?Breast lump.?Denies?Nipple discharge.?Hematology:?Denies?Swollen glands.?Skin:?Patient denies?changing moles.?Comments?had a skin check this year, to go again in 2 yrs.?Psychiatric:?Denies?Anxiety.? * Medical History:? * Audio Visual Tech History:?/ Para?2/2.?Sexual activity?currently sexually active.?Last Pap Smear:?04/12/2021 ASCUS, NEG HPV, 12/25/15 NEG HRHPV, 03/2013 ASCUS, NEG HRHPV, 2011 - NIL.?Mammogram:?04/19/24 < 50% density, 04/17/23, 04/15/22 < 50% density, 04/12/2021, 01/31/19 < 50% density, 12/11/2017 < 50% density, normal, 12/09/16 < 50% density, 10/05/15 < 50% density, 10/2014.?Abnormal Pap Smear:?2012, ASCUS.?LMP and menses?Mee.? Control:?bilateral tubal ligation.?Colonoscopy?01/2023, 07/2011, 2016.?Bone Density:?2012.? * OB History:?Total pregnancies?2.?Total living children?2.?NVD?2.? # 1:?normal spontaneous vaginal delivery (), 07/14/84, Shivam, 7lb 12oz, no complications.? # 2:?normal spontaneous vaginal delivery (), 03/21/87, Chevy, 6lb 4oz, no complications.? * Surgical History:?Bilateral Tubal Ligation Colonoscopy Left Hand Surgery [place] [facility] R shoulder surgery 05/2020Right Cataract 01/2024Left Cataract 03/2024 * Hospitalization/Major Diagno stic Procedure:?2 Vaginal Deliveries See Surgical Hx * Family History:?Mother: dece ased 84 yrs, lung cancer; pulmonary fibrosis.?Father: alive 93 yrs, well, HTN, some forgetfulness.? No family history of breast, colon, uterine or ovarian cancer 2 brothers, 4 sisters 2nd sister - had colon polyps 3rd sister - osteoporosis Great niece - leukemia at age 10 (2022); doing much better in 2023 (still doing chemo - needs to do it for 2.5 yrs - will finish 05/2025). * Social History:?Tobacco Use:?Tobacco Use/Smoking?Are you a?nonsmoker ???Sexual History:?Sexual History?Had sex in the past 12 months (vaginal, oral, or anal)?: Yes.?Details of Sexual History?Are you sexually active??Yes ???Drugs/Alcohol:?Drugs?Have you used drugs other than those for medical reasons in the past 12 months??No ?Alcohol Screen (Audit-C)?Did you have a drink containing alcohol in the past year??Yes ?How often did you have a drink containing alcohol in the past year??2 to 3 times a week (3 points) ?How many drinks did you have on a typical day when you were drinking in the past year??1 or 2 drinks (0 point) ?How often did you have 6 or more drinks on one occasion in the past year??Less than monthly (1 point) ?Points?4 ?Interpretation?Positive ???Miscellaneous:?Children: yes, 2. ?Domestic violence: no. ?Exercise: no. ?Home smoke detector use: yes, smoke detectors, carbon monoxide detector. ?Housing: owns a home. ?Living with: spouse. ?Marital status: , [place]. ?Natural support system: yes. ?Occupation: Retired - worked for [employer]. ?Pets: none. ?Sexual abuse: no. ?Sexually active: yes, monogamous relationship. ?Verbal abuse: no. * Medications:?TakingCoQ-10 Ma gnesium Citrate 200 MG Tablet as directed Orally Fish Oil 500 MG Capsule 1 capsule Orally Twice a day Vitamin D 2000 UNIT Tablet 1 tablet Orally Once a day Taking CoQ-10 Taking Magnesium Citrate 200 MG Tablet as directed Orally Taking Fish Oil 500 MG Capsule 1 capsule Orally Twice a day Taking Vitamin D 2000 UNIT Tablet 1 tablet Orally Once a day DiscontinuedmetFORMIN HCl 500 MG Tablet TAKE 1 TABLET BY MOUTH EVERYDAY AT BEDTIME Oral Medication List reviewed and reconciled with the patientDiscontinued metFORMIN HCl 500 MG Tablet TAKE 1 TABLET BY MOUTH EVERYDAY AT BEDTIME Oral Medication List reviewed and reconciled with the patient * Allergies:?N.K.D.A.no[Allerg ies Verified] Objective: * Vitals:?Ht: 58 in, Wt:173lbs , BMI:36.15Index, BP:120/84mm Hg, Temp:97.5F. * Examination: ???General Examination: ?GENERAL APPEARANCE:?in no acute distress, well developed, well nourished, wellness coordinator present in room.?HEAD:?normocephalic, atraumatic.?NECK/THYROID:?neck supple, full range of motion, thyroid normal.?LYMPH NODES:?no axillary or supraclavicular adenopathy.?SKIN:? normal, good turgor, no rashes, no suspicious lesions.?BREASTS:? normal, no dimpling, no discharge, no drainage, no masses palpable bilaterally, nontender.?ABDOMEN:? soft, non-tender, non distended without masses or hepatosplenomegay.?RECTAL:? normal tone, no masses palpable.?BACK:? no costovertebral angle tenderness.?FEMALE GENITOURINARY:?Vulva without lesions or masses, vagina pink without abnormal discharge, lesions or masses, cervix appears normal and is not tender to palpation, uterus is normal size, mobile, nontender and anteverted, ovaries are not palpable.?NEUROLOGIC:? alert and oriented, gait normal.?PSYCH:? alert, oriented, cognitive function intact, cooperative with exam, good eye contact, mood/affect full range, speech clear.? Assessment: * Assessment: 1.?Encounter for gynecologic al examination (general) (routine) without abnormal findings - Z01.419 (Primary)???2.?Encounter for screening mammogram for malignant neoplasm of breast - Z12.31??? Plan: * Treatment: ? Value Reference Range ?. . - * ?HPV Aptima Negative Negative - * This lab was reviewed by ANDREI RIVERA on 04/26/2024 at 13:15 PM EDT Notes: During the visit, the following areas of concern were addressed: Discussed cervical cancer screening with either cytology alone every 3 years or high risk HPV co-testing every 5 years as per ASCCP guidelines. Advised continued annual pelvic exams. Patient encouraged to increase her level of exercise. SBE technique encouraged/taught. Patient reminded when annual mammogram is due. Patient encouraged to keep colon screening up to date. ??2.?Encounter for screening mammogram for malignant neoplasm of breast?Imaging: MM Digital Screening Mammogram 3D * Procedure Codes:? * Preventive Medicine:? ~~~~~~~~~~~~~ STRENGTH TRAINING ~~~~~~~~~~~~~ Anyone, at any fitness level, can and should add strength training to their routine. Strength training is an important part of an overall fitness program, mainly because lean muscle mass naturally diminishes with age. You'll increase the percentage of fat in your body if you don't do anything to replace the lean muscle you lose over time. Strength training can help you preserve and enhance your muscle mass (at any age!), develop strong bones and reduce the risk of osteoporosis, manage or lose weight and increase your metabolism to help you burn more calories. It will also improve your ability to do everyday activities and reduce symptoms of chronic conditions such as arthritis, back pain, obesity, heart disease and diabetes. Some research suggests that regular strength training may help improve thinking and learning skills. Don't be intimidated. You can strength train at home or in the gym, and you have plenty of options. You can rely on your body weight and do many exercises with little or no equipment, like pushups, pullups, planks and leg squats. Or you can go pro and choose to go with resistance tubing (a lightweight tubing that provides resistance when stretched), free weights like barbells and dumbbells, or weight machines at the gym. ~~~~~~~~~~~~~~~~~~~~~~~~~~~~~~~~~~~~~~~~~~~ SARCOPENIA AND THE IMPORTANCE OF STRENGTH TRAINING EXERCISE ~~~~~~~~~~~~~~~~~~~~~~~~~~~~~~~~~~~~~~~~~~~ What is sarcopenia? ~~~~~~~~~~~~ Sarcopenia refers to the process of losing skeletal muscle mass and strength. 'Sarco' is the Occitan word referring to flesh, and 'penia' means a reduction in amount. Thus, the word describes a progressive weakening of the body caused by a 'change in body compensation in favor of fat and at the expense of muscle.' Everyone, beginning around age 25, starts to lose muscle mass, though the actual symptoms of this loss do not usually begin showing up until around the age of 40 or so. The process begins really picking up speed after the age of 65. In fact, around the age of 40, most women will lose almost a half-pound of muscle every year and replace it with fat. The result of this gradual loss of muscle is an insidious weakening of the body, loss of balance, loss of confidence upon walking, and a reduced ability to recover from near falls. As we lose strength, we become more inactive. This makes sense, because if we have less muscle, it takes much more effort to move, and we fatigue more easily. But also, with loss of strength comes loss of balance and stability. The fear of falling keeps many people sedentary, and a sedentary lifestyle opens the door for chronic illness. ~~~~~~~~~~~~~~ Take back your muscle ~~~~~~~~~~~~~~ And now for great news: you can delay sarcopenia and even reverse it. How? By lifting weights. Even though you cannot grow new muscles cells to replace the ones you have already lost, you can develop the ones that you have left. In fact, you can become stronger than you ever have in your life by simply beginning a strength training program. No matter how old you are, it is not too late to start. Even patients in nursing homes have seen transformation. After strength training, bedridden patients were able to begin walking with walkers, walker-dependent patients graduated to canes, and so on. And no matter how young you are, it is not too early to start! By starting early, you can significantly delay the effects of sarcopenia. As you begin lifting weights, you will notice a transformation in your body. You will have more energy, you will perform everyday tasks with noticeably more ease and your clothes will begin sagging on you, because you will be building muscle and burning up the fat deposits. You will have greater balance and more confidence. And perhaps best of all is the insurance policy you pay premiums on every time you choose to lift, because you are laying a strong, solid foundation for your later years. You are laying up health, independence and the ability to live well, not just long. DON'T LET ANOTHER DAY GO BY THAT YOU ARE LOSING MUSCLE. Take it back, and get ready to feel better than you ever have! . * Follow Up:?1 Year (Reason: Y early Audio Visual Tech Exam) * Images: Billing Information: * Visit Code:? [id number] Preventive Care Est Pt. Age 40-64. * Procedure Codes:? * Sign off status: Completed true * Provider:?DONALD RIVERA MD Date:?2023 Generated for Zahraa velázquez/Armando/Naveeditting on:?10/24/2024 01:25 PM EST History and Physical Notes * HPI (History of Present Illness) Category Sub-Category Detail Notes Category Not es Constitutional Renetta is a 59yo who presents for her yearly nurse obgyn exam. She has been in state of good health since her last exam. She has the following concerns: none She has received the [employer] Covid-19 vaccine and 2 boosters. Relationship status: for nearly 42 years. She is sexually active. Sexual partner(s): male. She does not wish to have STI testing. She does not report vaginal dryness. She does not have hot flashes/night sweats. The patient has never had an abnormal pap smear. Her most recent pap smear was 04/12/21 - ASCUS, Neg HR HPV. Next due for pap in 2023. She has not been diagnosed with breast cancer. She does not have a family history of breast cancer. Her last mammogram was 04/19/24. She does not have a family history of colon cancer. Her sister had colon polyps. She a has had a colonoscopy. The last colonoscopy was 01/2023 - ok. Next one in 10 yrs. The patient does exercise. She exercises x 2-3 days/week by walking. Examination Category Sub-Category Detail Notes Category Not es General Examination GENERAL APPEARANCE: in no ac tanacross distress, well developed, well nourished, wellness coordinator present in room HEAD: normocephalic, atrau matic NECK/THYROID: neck supple, full ra nge of motion, thyroid normal ABDOMEN: soft, non-tender, no n distended without masses or hepatosplenomegay NEUROLOGIC: alert and oriented, gait normal SKIN: normal, good turgor, no rashes, no suspicious lesions BACK: no costovertebral an gle tenderness BREASTS: normal, no dimpling, no discharge, no drainage, no masses palpable bilaterally, nontender LYMPH NODES: no axillary or supra clavicular adenopathy RECTAL: normal tone, no mass es palpable PSYCH: alert, oriented, cog nitive function intact, cooperative with exam, good eye contact, mood/affect full range, speech clear FEMALE GENITOURINARY: Vulva without lesi ons or masses, vagina pink without abnormal discharge, lesions or masses, cervix appears normal and is not tender to palpation, uterus is normal size, mobile, nontender and anteverted, ovaries are not palpable
== END 2024-10-24 13:22 | disposition home or self-care (01) ==
PROVIDERS: PCP Internal Medicine; Visit Provider Nurse Practitioner Family
DX: J06.9 Acute upper respiratory infection, unspecified (principal); R05.1 Acute cough

== ENCOUNTER 2025-07-04 09:35 | Outpatient (REF) | payer OTHER, SELFPAY ==
[2025-07-04 10:38] LABS: MANUAL DIFF FLAG NO
--- OUTSIDE RECORDS SUMMARY | 2025-07-04 10:42 | XMS_ITS | Patient Health Record ---
Author Organization [employer] [facility] Address [address] [place] [address] Care Team Providers Care Workers' Compensation Hearings Officer Name Role Phone Lisa Kumar MD Primary Care Provider Laura Garnica Unavailable [phone] Allergies No Known Allergies Results Component Value Reference Range Notes Urinalysis Reviewed date:04/24/2025 01:07:26 PM Interpretation: Performing Lab: Notes/Report: PH 5.0 PROTEIN TRACE GLUCOSE NEG BLOOD NEG Reason For Referral No Information Medications Medication SIG (Take, Route, Frequency, Duration) Notes Start Date End Date Status CoQ-10 Active Magnesium Citrate 200 MG as directed Orally Active Fish Oil 500 MG 1 capsule Orally Twi ce a day; Duration: 30 day(s) Active Vitamin D 2000 UNIT 1 tablet Orally Once a day Active Social History Tobacco Use: Social History Observation Description Date Details (start date - stop date) Never Smoker NA - NA AUDIT-C (Standard) Question Answer Notes Did you have a [...] (0 point) How often did you have six o r more drinks on one occasion in the past year? Less than monthly (1 point) Points 4 Interpretation Positive Tobacco Control (Standard) Question Answer Notes Tobacco use: Nonsmoker Problems Problem Type SNOMED Code ICD Code Onset Dates Problem Status W/U Status Risk Notes Problem Hyperlipidemia (72699671) Hyperlipidemia, unspecified (E78.5) Active confirmed Problem Prediabetes (147401142) Prediabetes (R73.03) Active confirmed Problem COVID-19 (620413039) COVID-19 (U07.1) Active confirmed Problem Gynecological examination normal (909406721636456) Routine gynecological examination (V72.31) Active confirmed Major Problem Screening for malignant neoplasm of colon (932462020) Special screening for malignant neoplasms, colon (V76.51) Active confirmed Major Vital Signs Temperature 97.8 degrees Fahrenheit 04/24/2025 Blood pressure diastolic 86 mm Hg 04/24/2025 Height 58 in 04/24/2025 Blood pressure systolic 134 mm Hg 04/24/2025 Weight 172 lbs 04/24/2025 BMI 35.94 kg/m2 04/24/2025 Encounters Encounter Location Date Provider Diagnosis [address] [place] [address] 04/24/2025 Laura Galeas Encounter for screening mammogram for malignant neoplasm of breast Z12.31 ; Personal history of other diseases of the female genital tract Z87.42 ; Leiomyoma of uterus, unspecified D25.9 and Encounter for gynecological examination (general) (routine) without abnormal findings Z01.419 Assessments Encounter Date Diagnosis (ICD Code) Assessment Notes Treatment Notes Treatment Clinical Notes Section Notes 04/24/2025 Encounter for screening mammogram for malignant neoplasm of breast (ICD-10 - Z12.31) REGULAR MAMMOGRAMS AND SBE'S WERE RECOMMENDED. 04/24/2025 Personal history of other diseases of the female genital tract (ICD-10 - Z87.42) DISCUSSED PREVIOUS HX OF ABNORMAL PAP TEST AND AND NEGATIVE COLPOSCOPY. SUBSEQUENT PAP TESTS HAVE BEEN NEGATIVE AND HPV NEGATIVE. 04/24/2025 Leiomyoma of uterus, unspecified (ICD-10 - D25.9) DISCUSSED SMALL FIBROIDS NOTED ON PELVIC US IN 2018. BENIGN NATURE OF FIBROIDS WAS EMPHASIZED. 04/24/2025 Encounter for gynecological examination (general) (routine) without abnormal findings (ICD-10 - Z01.419) NO PAP TEST, DUE IN 2026. Plan Of Treatment Pending Test Test Name Order Date MAMMOGRAM, SCREENING 10/10/2014 MAMMOGRAM, SCREENING 04/24/2025 Urinalysis 01/12/2018 MM Digital Mammo Screening 04/24/2025 MM Digital Screening Mammogram 3D 2020 MM Digital Screening Mammogram 3D 2021 MM Digital Screening Mammogram 3D 2022 MM Digital Screening Mammogram 3D 2023 Next Appt Details Provider Name:Laura du, 04/28/2026 09:20:00 AM, [address], [address], [place], [address], Insurance Providers Payer Name Payer Address Payer Phone Subscriber Number Group Number Insured Name Patient Relationship to Insured Coverage Start Date Coverage End Date [facility] [address] [place] [address] [id number] RENETTA BROOKS Self - patient is the insured Medical (General) History Medical History History ICD Code Atypical squamous cells of u ndetermined significance on cytologic smear of cervix (ASC-US) R87.610 Prediabetes R73.03 Hyperlipidemia, unspecified E78.5 COVID-19 U07.1 Surgical History Surgery Date(Month/Year) Bilateral Tubal Ligation Colonoscopy Left Hand Surgery [place] [facility] R shoulder surgery 05/2020 Right Cataract 01/2024 Left Cataract 03/2024 Hospitalization History Reason Date(Month/Year) See Surgical Hx 2 Vaginal Deliveries
[2025-07-04 10:48] LABS: Hematocrit 42.0 % (37.0-47.0); Hemoglobin 13.8 g/dl (12.0-16.0); Imm Gran Abs Auto 0.02 X10*3/uL (0.00-0.03); Imm Gran Pct Auto 0.3 % (0.0-0.4); Lymphocytes Absolute Auto 2.3 X10*3/uL (1.2-4.9); Mean Corpuscular HGB Conc 32.9 g/dl (31.0-35.0); Mean Corpuscular Hemoglobin 31.9 pg (27.0-33.0); Mean Corpuscular Volume 97.2 fL (80.0-98.0); NRBC Abs Auto 0.000 X10*3/uL (0.0-0.012); NRBC Pct Auto 0.0 /100WBC (0.0-0.2); Platelet Count 277 X10*3/uL (160-400); Red Blood Count 4.32 X10*6/uL (4.20-5.50); White Blood Count 7.2 X10*3/uL (4.8-10.8)
[2025-07-04 13:43] LABS: Alanine Aminotransferase 22 U/L (0-31); Albumin Level 4.3 g/dL (3.5-5.0); Alkaline Phosphatase 99 U/L (39-117); Anion Gap 11 (12-20); Aspartate Amino Transferase 26 U/L (5-31); Blood Urea Nitrogen 15 mg/dL (9-16); Calcium 9.2 mg/dL (8.4-10.2); Carbon Dioxide 26 mmol/L (22-29); Chloride 106 mmol/L (96-108); Cholesterol 246 mg/dL (<200); Estimated Glomerular Filt Rate 60; HDL Cholesterol 68 mg/dL (>40); Potassium 3.8 mmol/L (3.3-5.1); Sodium 139 mmol/L (135-145); Total Protein 7.3 g/dL (6.5-8.0); Triglycerides 84 mg/dL (<150)
== END 2025-07-04 09:36 | disposition home or self-care (01) ==
LOC: HO.HMGCLDS 09:35
PROVIDERS: PCP Internal Medicine; Visit Provider Internal Medicine
DX: Z00.00 Encounter for general adult medical examination without abnormal findings (principal); R73.9 Hyperglycemia, unspecified; E78.00 Pure hypercholesterolemia, unspecified
CPT/HCPCS: 36415; 80053; 80061; 84443; 85025

== ENCOUNTER 2025-07-10 07:55 | Outpatient (AMB) | payer OTHER, SELFPAY ==
--- OUTSIDE RECORDS SUMMARY | 2025-07-10 08:01 | XMS_ITS | Patient Health Record ---
Author Organization [employer] [facility] Address [address] [place] [address] Care Team Providers Care Environmental Engineering Intern Name Role Phone Lisa Kumar MD Primary Care Provider Laura Garnica Unavailable [phone] Allergies No Known Allergies Results Component Value [...] Status W/U Status Risk Notes Problem Hyperlipidemia (16880647) Hyperlipidemia, unspecified (E78.5) Active confirmed Problem Prediabetes (475067703) Prediabetes (R73.03) Active confirmed Problem COVID-19 (908099839) COVID-19 (U07.1) Active confirmed Problem Gynecological examination normal (953938920399155) Routine gynecological examination (V72.31) Active confirmed Major Problem Screening for malignant neoplasm of colon (400486685) Special screening for malignant neoplasms, colon (V76.51) Active confirmed Major Vital Signs Temperature 97.8 degrees Fahrenheit 04/24/2025 Blood pressure diastolic 86 mm Hg 04/24/2025 Height 58 in 04/24/2025 Blood pressure systolic 134 mm Hg 04/24/2025 Weight 172 lbs 04/24/2025 BMI 35.94 kg/m2 04/24/2025 Encounters Encounter Location Date Provider Diagnosis [address] [place] [address] 04/24/2025 Laura Galeas Encounter for screening mammogram [...] Provider Name:Laura du, 04/28/2026 09:20:00 AM, [address], [address], [place], [address], Insurance Providers Payer Name Payer Address Payer Phone Subscriber Number Group Number Insured Name Patient Relationship to Insured Coverage Start Date Coverage End Date [facility] [address] [place] [address] [id number] RENETTA BROOKS Self - patient is the insured Medical (General) History Medical History History ICD Code Atypical squamous cells of u ndetermined significance on cytologic smear of cervix (ASC-US) R87.610 Prediabetes R73.03 Hyperlipidemia, unspecified E78.5 COVID-19 U07.1 Surgical History Surgery Date(Month/Year) Bilateral Tubal Ligation Colonoscopy Left Hand Surgery [place] [facility] R shoulder surgery 05/2020 Right Cataract 01/2024 Left Cataract 03/2024 Hospitalization History Reason Date(Month/Year) See Surgical Hx 2 Vaginal Deliveries
--- NOTE | 2025-07-10 08:08 | MHC.PC.OV ---
Vital Signs 07/10/25 08:09 Height 4 ft 9 in Weight 172 lb BMI 37.2 BP 122/74 Blood Pressure Location Lt brachial Position Sitting Respiration 17 Pulse 78 Pulse Source Pulse Oximeter Temp 97.7 F Temp Source Oral Pulse Oximetry (%) 96 Oxygen Delivery Method Room Air Intake Visit Reasons: Annual PE Intake Note: Pt is here today for PE. Allergies No Known Allergies Allergy (Verified 07/10/25 08:10) Medication List - Last Reconciled 07/10/25 by Lisa Kumar MD cholecalciferol (vitamin D3) (Vitamin D3) 50 mcg PO DAILY magnesium citrate 100 mg PO DAILY omega 3-ixv-kfr-fish oil 1,200 (144-216) mg (Fish Oil) caps PO Tobacco use date assessed: 07/10/25 Dental Screening Dental Screen Date: 07/10/25 Did you have a dental visit in the last 12 months?: Yes Did you have a dental problem in the last 6 months where you did not have access to dental care?: No Was dental information given to patient?: Patient has dentist HPI Annual PE HPI Details Pt presents for PE. PFSH Medical History (Updated 07/10/25 @ 08:59 by Lisa Kumar MD) Cough Acute respiratory disease Annual physical exam Normal Pap smear Shoulder fracture, right Vitamin D deficiency Carpal tunnel syndrome Microhematuria History of mammogram Obesity Hypercholesterolemia GERD (gastroesophageal reflux disease) Surgical History (Updated 07/10/25 @ 08:58 by Lisa Kumar MD) Hx of cataract surgery H/O colonoscopy History of ganglion cyst History of tubal ligation Family History Father HTN (hypertension) Mother Pulmonary fibrosis Cancer Son No problems noted. Son No problems noted. Sister No problems noted. Sister No problems noted. Sister No problems noted. Sister Colon polyps Brother No problems noted. Brother No problems noted. Social History Housing: House Patient Tobacco Use Status: Never used Tobacco e-Cigarette/Vaping Use: Never Used service: No Current occupational status: retired Cognitive needs: No Hearing needs: No Vision needs: Yes Questionnaire PHQ-9 Over the last 2 weeks, how often have you been bothered by any of the following problems? 1. Little interest or pleasure in doing things: not at all 2. Feeling down, depressed, or hopeless: not at all 3. Trouble falling or staying asleep, or sleeping too much: not at all 4. Feeling tired or having little energy: not at all 5. Poor appetite or overeating: not at all 6. Feeling bad about yourself - or that you are a failure or have let yourself or your family down: not at all 7. Trouble concentrating on things, such as reading the newspaper or watching television: not at all 8. Moving or speaking so slowly that other people could have noticed. Or the opposite - being so fidgety or restless that you have been moving around a lot more than usual: not at all 9. Thoughts that you would be better off or of hurting yourself in some way: not at all Total score: 0 Depression Screening Interpretation: Negative Depression Screening Done: Yes 64909 - PHQ-9 Billing: Yes Source: Developed by Drs. Donnie Vargas, Vero Hamilton, Ted Arce and colleagues, with an educational edwin from [employer]. Thrive Questionnaire Date Thrive assessed: 07/10/25 I am a: Patient What is your living situation today?: I have a steady place to live Within the past 12 months, did the food you bought not last and you didn't have the money to get more?: Never true Within the past 12 months, did you worry whether your food would run out before you got money to buy more?: Never true Do you have trouble paying for medicines?: No Do you have trouble getting transportation to medical appointments?: No Do you have trouble paying your heating and electricity bill?: No Do you have trouble taking care of your child, family member or friend?: No Do you have trouble with day-to-day activities such as bathing, preparing meals, shopping, managing finances, etc.?: No Are you currently unemployed and looking for a job?: No Are you interested in more education?: No Please select the resources that you would like help with: None Currently or been in a relationship where the following occur: No concerns reported THRIVE Score: 0 AUDIT C Alcohol Use Questionnaire (AUDIT-C) 1. How often do you have a drink containing alcohol?: 2-4 times a month 2. How many drinks containing alcohol do you have on a typical day when you are drinking?: 1 or 2 3. How often do you have six or more drinks on one occasion?: Never Total Score: 2 JAYLEN-7 AMB Questionnaire JAYLEN-7 Date JAYLEN - 7 assessed: 07/10/25 Feeling nervous, anxious, or on edge: 0 = Not at all Not being able to stop or control worryin = Not at all Worrying too much about different things: 0 = Not at all Trouble relaxin = Not at all Being so restless that it is hard to sit still: 0 = Not at all Becoming easily annoyed or irritable: 0 = Not at all Feeling afraid as if something awful might happen: 0 = Not at all Total JAYLEN-7 score (0-4 normal; 5-9 mild; 10-14 moderate; 15-21 severe): 0 Source: Developed by Drs. Donnie Vargas, Vero Hamilton, Ted Arce and colleagues, with an educational edwin from [employer]. JAYLEN-7 Assessment Billing JAYLEN-7 Assessment Tool: JAYLEN-7 Assessment 59916 Review of Systems Const All systems reviewed & are unremarkable except as noted in HPI and below Reports no additional complaints Eyes Reports no additional complaints ENT Reports no additional complaints Card Reports no additional complaints Resp Reports no additional complaints GI Reports no additional complaints Physical exam (Primary Care) Vital Signs: Last Vital Signs Temp 97.7 F 07/10/25 08:09 Pulse 78 07/10/25 08:09 Resp 17 07/10/25 08:09 BP 122/74 07/10/25 08:09 Pulse Ox 96 07/10/25 08:09 Oxygen Delivery Method Room Air 07/10/25 08:09 BMI result Body Mass Index 37.2 Tobacco/Smoking Status: Tobacco use Status Tobacco use date assessed 07/10/25 07/10/25 08:15 Patient Tobacco Use Status Never used Tobacco 07/10/25 08:15 e-Cigarette/Vaping Use Never Used 07/10/25 08:15 PHQ-9: PHQ-9 Score PHQ-9: Total score 0 07/10/25 08:15 Depression Screening Interpretation: Negative Thrive Assessment: Date of Thrive Assessment Date Thrive assessed 07/10/25 07/10/25 08:15 Currently or been in a relationship where the following occur: No concerns reported Const General: no acute distress HENMT Head: Yes normal to inspection Ears: hearing grossly normal bilaterally Face and sinus: Yes normal facial exam Mouth: Normal oral and palatal mucosa present Throat: Yes posterior oropharynx normal Eyes General: appearance normal, both eyes and all related structures Neck Neck: Yes no lymphadenopathy and Yes supple Resp Effort & Inspection: normal respiratory effort Auscultation: clear to auscultation bilaterally Cardio Rhythm: regular rhythm Heart sounds: S1 normal heart sound present and S2 normal heart sound present GI Inspection: Yes normal to inspection Palpation (GI): Soft to palpation Percussion: Yes normal to percussion Auscultation: normal bowel sounds Coding Level of Care Code Est Pt Prev Care 40-64y(23146) Diagnoses Hypercholesterolemia E78.00 Obesity E66.9 Vitamin D deficiency E55.9 Annual physical exam Z00.00 Additional Codes JAYLEN-7 Assessment Billing - JAYLEN-7 Assessment Tool: JAYLEN-7 Assessment 92577 ([id number]) PHQ-9 - 14693 - PHQ-9 Billing: Yes ([id number]) Assessment & Plan Assessment & Plan (1) Hypercholesterolemia: Comment: declined taking statin Code(s): E78.00 - Pure hypercholesterolemia, unspecified Category: Medical Plan: Continue low-cholesterol diet fish oil supplement increase physical activity discussed with the patient. She declined taking statin (2) Obesity: Comment: BMI 37.2 Code(s): E66.9 - Obesity, unspecified Category: Medical Plan: Decrease caloric intake increasing physical activity discussed with the patient (3) Vitamin D deficiency: Code(s): E55.9 - Vitamin D deficiency, unspecified Category: Medical Plan: CONTINUE VITAMIN-D. (4) Annual physical exam: Code(s): Z00.00 - Encounter for general adult medical examination without abnormal findings Category: Medical Plan: Well-balanced diet regular physical activity discussed with the patient. She is up-to-date with the mammogram Pap smear by pharmacy ancillary and colonoscopy . She will return in 1 year with a fasting labs before Orders: Orders Comprehensive Gregory. Panel Fast 1 Year E55.9 - Vitamin D deficiency, unspecified, E78.00 - Pure hypercholesterolemia, unspecified, Z00.00 - Encounter for general adult medical examination without abnormal findings Lipid Panel 1 Year E55.9 - Vitamin D deficiency, unspecified, E78.00 - Pure hypercholesterolemia, unspecified, Z00.00 - Encounter for general adult medical examination without abnormal findings UA w Microscopic 1 Year E55.9 - Vitamin D deficiency, unspecified, E78.00 - Pure hypercholesterolemia, unspecified, Z00.00 - Encounter for general adult medical examination without abnormal findings Complete Blood Count Auto Diff 1 Year E55.9 - Vitamin D deficiency, unspecified, E78.00 - Pure hypercholesterolemia, unspecified, Z00.00 - Encounter for general adult medical examination without abnormal findings TSH reflex Free T4 1 Year E55.9 - Vitamin D deficiency, unspecified, E78.00 - Pure hypercholesterolemia, unspecified, Z00.00 - Encounter for general adult medical examination without abnormal findings Vitamin D 25-OH Total 1 Year E55.9 - Vitamin D deficiency, unspecified, E78.00 - Pure hypercholesterolemia, unspecified, Z00.00 - Encounter for general adult medical examination without abnormal findings
[2025-07-10 08:09] VITALS: BP 122/74; PULSE 78; RESP 17; TEMP 36.5; O2SAT 96; BMI 37.2
== END 2025-07-10 09:02 | disposition home or self-care (01) ==
LOC: HO.HMCC 07:56
PROVIDERS: PCP Internal Medicine; Visit Provider Internal Medicine
DX: Z00.00 Encounter for general adult medical examination without abnormal findings (principal); E78.00 Pure hypercholesterolemia, unspecified; Z68.37 Body mass index [BMI] 37.0-37.9, adult; E66.9 Obesity, unspecified; E55.9 Vitamin D deficiency, unspecified

== ENCOUNTER → 2025-07-10 07:55 | Outpatient (BNVA) | payer OTHER, SELFPAY | PROVIDERS: PCP Internal Medicine; Visit Provider Internal Medicine | DX: Z00.00 Encounter for general adult medical examination without abnormal findings (principal); E55.9 Vitamin D deficiency, unspecified; E66.9 Obesity, unspecified; E78.00 Pure hypercholesterolemia, unspecified; Z68.37 Body mass index [BMI] 37.0-37.9, adult | CPT/HCPCS: 96127 ==